=== PATIENT | female | born 1960 | race Hispanic/Latino ===

== ENCOUNTER → 2018-01-14 | Outpatient (CLI) | payer MEDICARE ==
[~2018-01-14] MED LIST: IOPAMIDOL 370 MG/ML 200 ML INFUS..BTL INJ ONE; SODIUM CHLORIDE 0.9% 50ML 50 ML ONE
[2018-01-14 10:05] LABS: ALANINE AMINOTRANSFERASE 31 IU/L (0-55); ALBUMIN/GLOBULIN RATIO 1.3 (0.8-2.0); ALKALINE PHOSPHATASE 96 IU/L (40-150); ANION GAP 17.1 mmol/L (8-16); BLOOD UREA NITROGEN 13 mg/dL (7-26); BUN/CREATININE RATIO 21 (6-25); CALCIUM 9.7 mg/dL (8.4-10.2); CARBON DIOXIDE 24 mmol/L (22-29); CHLORIDE 106 mmol/L (98-107); CREATININE, SERUM 0.62 mg/dL (0.57-1.11); EST GLOMERULAR FILTRATION RATE > 60 ML/MIN (60-); GLUCOSE 139 mg/dL (74-118); POTASSIUM 4.1 mmol/L (3.5-5.1); SODIUM 143 mmol/L (136-145)
--- NOTE | 2018-01-14 11:58 | Diagnostic Imaging Report ---
PROCEDURE:CT ABDOMEN WITH CONTRAST COMPARISON:None. INDICATIONS:ANTRAL TUMOR TECHNIQUE:5 mm images of the abdomen were performed after the intravenous administration of 100 cc of nonionic contrast. A general abdominal protocol was utilized. DLP: 471.06 mGY-cm FINDINGS: LUNG BASES:Clear. Visualized portion of the mediastinum is normal. LIVER:Diffusely decreased in attenuation consistent with steatosis. The right lobe measures 20 cm in length. There is no evidence of mass. BILIARY:The gallbladder is present and normal in appearance. No biliary ductal dilatation. PANCREAS:Normal attenuation without mass or ductal dilatation. SPLEEN:Normal size and attenuation without mass. KIDNEYS:[place] kidneys are atrophic without mass or hydronephrosis. A punctate calcification is in the lower pole of the left kidney. A renal transplant in the right iliac fossa is incompletely imaged. Visualized portions are normal in appearance. No surrounding fluid collection or hydronephrosis. ADRENALS:No mass. AORTA/VASCULAR:Normal in diameter with a few atherosclerotic calcifications. There is normal branching of the celiac artery. SMA is widely patent. LYMPH NODES: No enlarged lymph nodes in the gastrohepatic ligament. No enlarged periportal or periaortic lymph nodes. BOWEL/MESENTERY:Enhancing mass in the gastric antrum measures 3.3 x 3.1 x 2.1 cm (AP, transverse, craniocaudal). This mass is intraluminal. There is no fat inflammation or lymphadenopathy surrounding the stomach. There is no evidence of gastric obstruction. Small bowel is normal in diameter wall thickness. A low attenuating lesion in the second/third portion of the duodenum measures 7 mm and is suggestive of a lipoma. Visualized large bowel is normal in diameter with normal wall thickness. ABDOMINAL WALL:Normal. BONES:No focal osseous lesions. CONCLUSION: 1. Mass in the gastric antrum does not cause gastric outlet obstruction. There is no invasion through the gastric wall or surrounding lymphadenopathy. 2. No lymphadenopathy in the abdomen to suggest metastasis. No solid organ metastasis. 3. Hepatic steatosis and hepatomegaly. 4. Visualized portion of a right renal transplant appears normal. Dictated by: Emerson Rodriguez M.D. on 01/14/2018 at 11:58 Electronically approved by: Emerson Rodriguez M.D. on 01/14/2018 at 11:58
== END ==
LOC: CT 09:04
PROVIDERS: ATTEND Surgery
DX: R19.09 Other intra-abdominal and pelvic swelling, mass and lump (principal); K76.0 Fatty (change of) liver, not elsewhere classified; Z94.0 Kidney transplant status
CPT/HCPCS: 36415; 74160; 80053; 82378; Q9967

== ENCOUNTER 2018-04-08 06:38 | Inpatient (IN) | payer MEDICARE ==
[2018-04-06 09:33] LABS: BASOPHILS # (AUTO) 0.1 (0.0-0.1); BASOPHILS % 0.5 % (0.0-1.0); EOSINOPHILS # (AUTO) 0.2 (0.0-0.4); EOSINOPHILS % 2.3 % (0.0-6.0); HEMATOCRIT 33.8 % (34.2-44.1); HEMOGLOBIN 10.3 g/dL (12.0-16.0); LYMPHOCYTES # (AUTO) 1.8 (1.0-3.2); MEAN CORPUSCULAR HEMOGLOBIN 24.1 pg (28-32); MEAN CORPUSCULAR HGB CONC 30.5 g/dL (31-35); MEAN CORPUSCULAR VOLUME 79.2 fL (81-99); MONOCYTES # (AUTO) 0.8 (0.2-0.8); MONOCYTES % 8.2 % (4.4-11.3); NEUTROPHILS # (AUTO) 6.5 (2.1-6.9); NEUTROPHILS % 69.6 % (38.7-80.0); PLATELET COUNT 353 x10e3/uL (140-360); RED BLOOD COUNT 4.27 x10e6/uL (3.6-5.1); RED CELL DISTRIBUTION WIDTH 16.3 % (11.7-14.4)
--- NOTE | 2018-04-06 09:36 | Diagnostic Imaging Report ---
PROCEDURE:CHEST 2 VIEWS TECHNIQUE:PA and lateral chest INDICATION:Stomach cancer. Preoperative chest x-ray. COMPARISON:None. FINDINGS: The lungs are clear and symmetrically inflated. No pleural effusions. Normal heart size. Prominent left hilum. Intact skeleton. CONCLUSION: 1. No acute cardiopulmonary abnormality. 2. Prominent left hilum, likely secondary to vasculature. Given underlying malignancy CT chest with contrast is recommended to exclude lymphadenopathy. Dictated by: Sudhir Cordoba M.D. on 04/06/2018 at 9:39 Electronically approved by: Sudhir Cordoba M.D. on 04/06/2018 at 9:39
[2018-04-06 09:54] LABS: ANION GAP 14.2 mmol/L (8-16); BLOOD UREA NITROGEN 16 mg/dL (7-26); BUN/CREATININE RATIO 24 (6-25); CALCIUM 10.1 mg/dL (8.4-10.2); CARBON DIOXIDE 29 mmol/L (22-29); CHLORIDE 105 mmol/L (98-107); CREATININE, SERUM 0.68 mg/dL (0.57-1.11); EST GLOMERULAR FILTRATION RATE > 60 ML/MIN (60-); GLUCOSE 150 mg/dL (74-118); POTASSIUM 4.2 mmol/L (3.5-5.1); SODIUM 144 mmol/L (136-145)
[~2018-04-08] VITALS: Ht 157.5 cm; Wt 88.6 kg
[2018-04-08] VITALS (21 sets, daily range): BP systolic 114–134; BP diastolic 70–80
[~2018-04-08 06:38] MED LIST changes: +AMLODIPINE BESY10 MG PO; +ATORVASTATIN CA20 MG PO; +HYDROCHLOROTHIA25 MG PO; -IOPAMIDOL 370 MG/ML 200 ML INFUS..BTL INJ ONE; +JANUVIA100 MG PO; +LORATADINE10 MG PO; +METFORMIN HCL500 M2 PO; +MYCOPHENOLATE250 MG PO; +NEORAL25 MG PO; +NEXIUM40 MG PO; +PREDNISONE5 MG PO; -SODIUM CHLORIDE 0.9% 50ML 50 ML ONE
[2018-04-08] MEDS: SODIUM CHLORIDE 0.9% 1000ML 1,000 ML IV SCH ×2 (11:51→21:34)
[2018-04-08] MEDS ORDERED: ONDANSETRON HCL INJ 2 MG/ML VIAL IV PRN (12:00)
[2018-04-08] MEDS: INSULIN REGULAR, HUMAN 100 UNIT/1 ML 3ML VIAL SQ SCH ×3 (12:00→18:00)
[2018-04-08] MEDS ORDERED: NALOXONE HCL INJ 0.4 MG/ML AMP IV PRN (12:00)
[2018-04-08] MEDS: SODIUM CHLORIDE 0.9% 250ML IRRIG IR SCH ×4 (12:00→23:52)
[2018-04-08] MEDS ORDERED: HYDROMORPHONE 0.2MG/ML-SOD CHL 30ML PCA SYRINGE IV ONE (12:17)
--- NOTE | 2018-04-08 12:20 | Diagnostic Imaging Report ---
PROCEDURE: A single AP view of the chest. COMPARISON: Chest radiograph 04/06/2018 INDICATIONS: POST OPERATION, CENTRAL LINE PLACEMENT FINDINGS: Lines/tubes: Right internal jugular central venous catheter with tip overlying the expected upper SVC. No NG/OG tube tip courses below the diaphragm with tip extending inferiorly, out of the field of view. Lungs: The lungs are poorly inflated with vascular crowding and bibasilar atelectasis. There is no evidence of pneumonia or pulmonary edema. Pleura: There is no pleural effusion or pneumothorax. Heart and mediastinum: The heart and the mediastinum are unremarkable. Bones: No acute bony abnormality. Upper abdomen: Skin stevan project over the midline abdomen. IMPRESSION: 1. Lines and Tubes: * Right internal jugular central venous catheter with tip overlying the expected upper SVC. * NG/OG tube visualized over the stomach, extending out of the field of view. 2. Low lung volumes with bibasilar atelectasis and vascular crowding. Dictated by: Galen Mirza M.D. on 04/08/2018 at 12:23 Electronically approved by: Galen Mirza M.D. on 04/08/2018 at 12:23
[2018-04-08] MEDS: HYDROMORPHONE 0.2MG/ML-SOD CHL 30ML PCA SYRINGE IV PRN (12:21)
--- NOTE | 2018-04-08 13:38 | Operative Report ---
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 OPERATION PERFORMED 1. Exploratory laparotomy. 2. Bilateral truncal vagotomies. 3. Antrectomy with retrocolic Deloris-en-Y. 4. Billroth II reconstruction. ASSISTANTS: Dr. Hemanth Funk and NOA Fong. ANESTHESIA: General. COMPLICATIONS: None. ESTIMATED BLOOD LOSS: 100 mL. DESCRIPTION OF PROCEDURE: With the patient lying in bed in the supine position, under good general endotracheal anesthesia, the abdomen was prepped with Betadine solution and draped in the usual manner. An upper midline incision was made. It was carried down through the subcutaneous tissue and through the midline fascia. The peritoneum was opened, and the abdomen was entered. Upon entering the abdominal cavity, exploration revealed the patient to have some fatty infiltration of the liver. There was a palpable right-sided pelvic kidney from her previous transplant. Examination of the stomach revealed a palpable mass in the antrum. There was no sign of any adenopathy there. There was no sign of any invasion of the serosa. We decided to go ahead and proceed with the antrectomy as planned. The vagotomy was done first. The esophagus was then encircled and retracted. The anterior vagus nerve was then dissected, and a truncal anterior vagotomy was performed. The specimen was sent for pathological examination. We made sure that there were no other anterior branches. After this was done, the posterior branch was then identified and similarly divided with the segment being also sent for pathological examination. Hemostasis was ascertained. After this was done, the lesser sac was then entered at the level of the mid stomach, and the lesser omentum was divided with the Enseal device to clear the distal stomach without any difficulty. Similarly, the lesser curvature omentum was divided all the way down to beyond the pylorus. After this was done, the stomach was then divided at the level of the mid stomach with an application of the TA-90 stapler, and the stomach was divided. The proximal stump was then oversewn with interrupted sutures of 2-0 silk. The posterior antrum was then slowly and carefully dissected all the way down to the duodenum at the level of the 1st portion, and the duodenum was then divided with an application of the TA-60 stapler, and the specimen was sent for pathological examination. There was no sign circumferentially of any invasion of tumor through the serosal surfaces. The duodenal stump was further oversewn with interrupted sutures of 3-0 silk. The ligament of Treitz was then identified; and distal to the ligament of Treitz, the jejunum was divided with an application of the AGUILAR-75 stapler. A retrocolic opening was then made in the mesentery, and the distal limb of the jejunum was brought up into the upper abdomen. The gastrojejunal anastomosis was then performed with another application of the AGUILAR-75 stapler. The remaining opening was closed with a TA-60 stapler. The anastomosis was reinforced with 2-0 silk sutures. The jejunojejunostomy was then performed 50 cm distal to the gastrojejunostomy with another application of a AGUILAR-75 stapler. The remaining opening was closed with a TA-60 stapler, and the anastomosis was similarly reinforced with 3-0 silk sutures. The mesenteric rent was then closed with interrupted sutures of 3-0 silk, anchoring the jejunal limb, and the mesenteric hole of the jejunal limb was approximated with a running suture of 2-0 Vicryl. Once this was done, the whole abdomen was then thoroughly irrigated. Perfect hemostasis was ascertained. The NG tube was placed in the proper position, and the abdomen was then closed in layers. The peritoneum was closed with a running suture of #1 Vicryl. The midline fascia was closed with a running suture of #1 PDS, and the skin was closed with clips. A dressing was applied. The sponge, lap and needle count was correct. The patient tolerated the procedure well and returned to the recovery room in stable condition. Job#: [id number]
[2018-04-08] MEDS: HYDROCORTISONE SOD SUCCINATE 100 MG VIAL IV SCH ×2 (14:00→21:44)
[2018-04-08] MEDS ORDERED: CEFAZOLIN SOD 1 GM/D5W 50ML 50 ML IV SCH (14:00)
[2018-04-08] MEDS ORDERED: CEFAZOLIN SOD 1 GM VIAL ONE (15:59)
[2018-04-08] MEDS ORDERED: GLYCOPYRROLATE INJ 1MG/ 5 ML SYR ONE (16:18)
[2018-04-08] MEDS ORDERED: NEOSTIGMINE 5 MG/5ML SYR ONE (16:18)
[2018-04-08] MEDS ORDERED: HYDROCORTISONE SOD SUCCINATE 100 MG VIAL ONE (16:18)
[2018-04-08] MEDS ORDERED: PROPOFOL IV EMULSION 10 MG/ML 20 ML VIAL ONE (16:18)
[2018-04-08] MEDS ORDERED: ROCURONIUM BROMIDE 10 MG/ML 5ML VIAL ONE (16:18)
[2018-04-08] MEDS ORDERED: SEVOFLURANE INHAL SOLN 250 ML PEN BTL ONE (16:18)
[2018-04-08] MEDS ORDERED: LIDOCAINE HCL 2% LOCAL INJ 5 ML SDV VIAL INJ ONE (16:18)
[2018-04-08] MEDS ORDERED: ONDANSETRON HCL INJ 2 MG/ML VIAL ONE (16:18)
[2018-04-08] MEDS ORDERED: FENTANYL CITRATE/PF 100MCG/2 ML INJ ONE (18:00)
[2018-04-08] MEDS ORDERED: MIDAZOLAM HCL 2 MG/2 ML VIAL ONE (18:00)
[2018-04-08] MEDS: CEFAZOLIN SOD 1 GM VIAL IV SCH (21:44)
[2018-04-08] MEDS: ACETAMINOPHEN 1000 MG/100 ML IV PRN (23:04)
[2018-04-09] VITALS (81 sets, daily range): BP systolic 110–144; BP diastolic 64–87
[2018-04-09] MEDS: SODIUM CHLORIDE 0.9% 1000ML 1,000 ML IV SCH ×3 (02:52→19:28)
[2018-04-09] MEDS: SODIUM CHLORIDE 0.9% 250ML IRRIG IR SCH ×5 (04:25→19:28)
[2018-04-09 05:22] LABS: BASOPHILS % 0.2 % (0.0-1.0); HEMOGLOBIN 8.8 g/dL (12.0-16.0); LYMPHOCYTES # (AUTO) 0.9 (1.0-3.2); LYMPHOCYTES % 6.3 % (18.0-39.1); MEAN CORPUSCULAR HEMOGLOBIN 24.1 pg (28-32); MEAN CORPUSCULAR HGB CONC 30.3 g/dL (31-35); MEAN CORPUSCULAR VOLUME 79.5 fL (81-99); MONOCYTES # (AUTO) 1.2 (0.2-0.8); MONOCYTES % 8.4 % (4.4-11.3); NEUTROPHILS # (AUTO) 12.1 (2.1-6.9); NEUTROPHILS % 84.6 % (38.7-80.0); PLATELET COUNT 300 x10e3/uL (140-360); RED BLOOD COUNT 3.65 x10e6/uL (3.6-5.1); RED CELL DISTRIBUTION WIDTH 17.1 % (11.7-14.4)
[2018-04-09] MEDS: INSULIN REGULAR, HUMAN 100 UNIT/1 ML 3ML VIAL SQ SCH ×4 (06:00→18:00)
[2018-04-09 06:01] LABS: ALANINE AMINOTRANSFERASE 146 IU/L (0-55); ALBUMIN 3.3 g/dL (3.5-5.0); ALBUMIN/GLOBULIN RATIO 1.1 (0.8-2.0); ALKALINE PHOSPHATASE 80 IU/L (40-150); ANION GAP 14.2 mmol/L (8-16); BLOOD UREA NITROGEN 14 mg/dL (7-26); BUN/CREATININE RATIO 19 (6-25); CALCIUM 8.7 mg/dL (8.4-10.2); CARBON DIOXIDE 24 mmol/L (22-29); CHLORIDE 111 mmol/L (98-107); CREATININE, SERUM 0.73 mg/dL (0.57-1.11); EST GLOMERULAR FILTRATION RATE > 60 ML/MIN (60-); GLUCOSE 170 mg/dL (74-118); POTASSIUM 4.2 mmol/L (3.5-5.1); SODIUM 145 mmol/L (136-145)
[2018-04-09] MEDS: HYDROCORTISONE SOD SUCCINATE 100 MG VIAL IV SCH ×3 (06:04→21:45)
[2018-04-09] MEDS: CEFAZOLIN SOD 1 GM VIAL IV SCH (06:04)
[2018-04-09] MEDS: ACETAMINOPHEN 1000 MG/100 ML IV PRN ×3 (06:30→21:40)
[2018-04-09] MEDS: CEFTRIAXONE SOD 1 GM VIAL IV SCH (19:28)
[2018-04-09] MEDS ORDERED: CYCLOSPORINE 250 MG/5 ML AMP IV SCH (21:00)
[2018-04-09] MEDS: SODIUM CHLORIDE 0.9% IV SCH (22:32)
[2018-04-09] MEDS: CYCLOSPORINE IV SCH (22:32)
--- NOTE | 2018-04-09 22:50 | Consultation ---
DATE OF CONSULTATION: April 09, 2018 HISTORY OF PRESENT ILLNESS: Ms. Laura Mccarty is a 58-year-old female. She is 8 years out into kidney transplant, currently receives prednisone 5 mg daily, cyclosporin 75 mg twice a day, Neoral that is, and mycophenolic acid 180 mg twice a day. She underwent partial gastrectomy. Please see details with Dr. Funk's note. Currently, awake, alert, lying supine. No apparent distress. Has an nasogastric tube completely n.p.o. receiving IV fluids. Denies shortness of breath, abdominal pain. 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 CURRENT MEDICATIONS: Please see chart. She is on Zofran p.r.n., Dilaudid p.r.n., cefazolin, normal saline 125 mL an hour, and cyclosporin 25 mg IV, which I initiated this morning. ALLERGIES: NO APPARENT DRUG ALLERGIES. PAST HISTORY: History of gastric cancer, had enterectomy, and retrocolic Deloris-en-Y, Billroth II reconstruction, and bilateral truncal vagotomies. Has underlying history of kidney transplant as mentioned above, history of diabetes. CURRENT LABS: Sodium 145, potassium 4.2, chloride 111, bicarbonate 24, creatinine 0.7. LFTs elevated 134 and 145 respectively. White count is 14.3, hemoglobin 8.8. SOCIAL HISTORY: Does not smoke or drink. FAMILY HISTORY: Significant for hypertension. EXAM GENERAL: Awake, alert, laying supine. No apparent distress. VITALS: Blood pressure 129/75. Pulse rate 74. Afebrile. Respiratory 17 with oxygen saturation 94%. HEAD AND NECK: Cornea clear. Mucosa dry. NG tube in. LUNGS: Decreased gas exchange, but relatively clear. HEART: S1, S2 audible. Distant heart sounds. ABDOMEN: Examination deferred. LOWER EXTREMITY: No edema. IMPRESSION: Cadaveric renal transplant, on immunosuppression. PLAN: To start TPN in the meantime. Will adjust the dose of cyclosporin to IV at 25 mg IV q.12 and will start Solu-Cortef 50 mg IV q.8. Will give mycophenolic acid as soon as surgery allows as to administer medication through the NG tube. Volume status appears stable. Please see orders. Job#: [id number] CQ
[2018-04-09] MEDS: DEXTROSE 5%/0.9% SOD CHL 1,000 ML IV SCH (23:15)
[2018-04-10] VITALS (83 sets, daily range): BP systolic 122–158; BP diastolic 69–88
[2018-04-10] MEDS: SODIUM CHLORIDE 0.9% 250ML IRRIG IR SCH ×6 (00:05→21:13)
[2018-04-10 05:27] LABS: BASOPHILS % 0.3 % (0.0-1.0); HEMATOCRIT 27.2 % (34.2-44.1); MEAN CORPUSCULAR HGB CONC 29.4 g/dL (31-35); MEAN CORPUSCULAR VOLUME 81.4 fL (81-99); MONOCYTES # (AUTO) 0.9 (0.2-0.8); MONOCYTES % 6.8 % (4.4-11.3); NEUTROPHILS # (AUTO) 11.8 (2.1-6.9); NEUTROPHILS % 85.3 % (38.7-80.0); PLATELET COUNT 252 x10e3/uL (140-360); RED BLOOD COUNT 3.34 x10e6/uL (3.6-5.1); RED CELL DISTRIBUTION WIDTH 17.2 % (11.7-14.4)
[2018-04-10 05:50] LABS: ALANINE AMINOTRANSFERASE 84 IU/L (0-55); ALBUMIN 2.8 g/dL (3.5-5.0); ALBUMIN/GLOBULIN RATIO 0.8 (0.8-2.0); ALKALINE PHOSPHATASE 76 IU/L (40-150); ANION GAP 11.5 mmol/L (8-16); BLOOD UREA NITROGEN 7 mg/dL (7-26); BUN/CREATININE RATIO 11 (6-25); CALCIUM 8.9 mg/dL (8.4-10.2); CARBON DIOXIDE 24 mmol/L (22-29); CHLORIDE 112 mmol/L (98-107); CREATININE, SERUM 0.62 mg/dL (0.57-1.11); EST GLOMERULAR FILTRATION RATE > 60 ML/MIN (60-); GLUCOSE 180 mg/dL (74-118); POTASSIUM 3.5 mmol/L (3.5-5.1); SODIUM 144 mmol/L (136-145)
[2018-04-10] MEDS: INSULIN REGULAR, HUMAN 100 UNIT/1 ML 3ML VIAL SQ SCH ×4 (06:00→17:55)
[2018-04-10 06:05] LABS: MAGNESIUM 1.7 MG/DL (1.3-2.1); PHOSPHORUS 1.7 MG/DL (2.3-4.7)
[2018-04-10] MEDS: HYDROCORTISONE SOD SUCCINATE 100 MG VIAL IV SCH ×3 (06:12→22:40)
[2018-04-10] MEDS: DEXTROSE 5%/0.9% SOD CHL 1,000 ML IV SCH ×2 (06:30→14:48)
[2018-04-10] MEDS: ACETAMINOPHEN 1000 MG/100 ML IV PRN ×3 (06:39→21:17)
[2018-04-10] MEDS ORDERED: POTASSIUM PHOSPHATE IV SCH (07:30)
[2018-04-10] MEDS ORDERED: MAGNESIUM SULFATE 2GM/50ML 50 ML IV ONE (07:30)
[2018-04-10] MEDS ORDERED: SODIUM CHLORIDE IV SCH (07:30)
[2018-04-10] MEDS: CYCLOSPORINE IV SCH ×2 (11:01→21:15)
[2018-04-10] MEDS: SODIUM CHLORIDE 0.9% IV SCH ×2 (11:01→21:15)
[2018-04-10] MEDS: HYDROMORPHONE 0.2MG/ML-SOD CHL 30ML PCA SYRINGE IV PRN (18:00)
[2018-04-10] MEDS: CEFTRIAXONE SOD 1 GM VIAL IV SCH (18:31)
[2018-04-10] MEDS: CENTRAL TPN FORMULA 1 BAG IV SCH (20:45)
[2018-04-11] VITALS (35 sets, daily range): BP systolic 130–168; BP diastolic 67–89
[2018-04-11] MEDS: INSULIN REGULAR, HUMAN 100 UNIT/1 ML 3ML VIAL SQ SCH ×4 (00:42→18:38)
[2018-04-11] MEDS: SODIUM CHLORIDE 0.9% 250ML IRRIG IR SCH ×6 (00:46→20:00)
[2018-04-11] MEDS: HYDROCORTISONE SOD SUCCINATE 100 MG VIAL IV SCH ×3 (05:18→22:00)
[2018-04-11] MEDS: DEXTROSE 5%/0.9% SOD CHL 1,000 ML IV SCH (05:18)
[2018-04-11 06:22] LABS: BASOPHILS % 0.3 % (0.0-1.0); HEMATOCRIT 26.2 % (34.2-44.1); HEMOGLOBIN 7.8 g/dL (12.0-16.0); LYMPHOCYTES # (AUTO) 0.8 (1.0-3.2); LYMPHOCYTES % 6.3 % (18.0-39.1); MEAN CORPUSCULAR HGB CONC 29.8 g/dL (31-35); MEAN CORPUSCULAR VOLUME 80.6 fL (81-99); MONOCYTES # (AUTO) 0.6 (0.2-0.8); MONOCYTES % 5.3 % (4.4-11.3); NEUTROPHILS # (AUTO) 10.4 (2.1-6.9); NEUTROPHILS % 87.2 % (38.7-80.0); PLATELET COUNT 260 x10e3/uL (140-360); RED BLOOD COUNT 3.25 x10e6/uL (3.6-5.1); RED CELL DISTRIBUTION WIDTH 17.2 % (11.7-14.4)
[2018-04-11 06:33] LABS: ALANINE AMINOTRANSFERASE 61 IU/L (0-55); ALBUMIN 2.7 g/dL (3.5-5.0); ALBUMIN/GLOBULIN RATIO 0.7 (0.8-2.0); ALKALINE PHOSPHATASE 85 IU/L (40-150); ANION GAP 11.7 mmol/L (8-16); BLOOD UREA NITROGEN 8 mg/dL (7-26); BUN/CREATININE RATIO 12 (6-25); CALCIUM 9.3 mg/dL (8.4-10.2); CARBON DIOXIDE 25 mmol/L (22-29); CHLORIDE 111 mmol/L (98-107); CREATININE, SERUM 0.69 mg/dL (0.57-1.11); EST GLOMERULAR FILTRATION RATE > 60 ML/MIN (60-); GLUCOSE 399 mg/dL (74-118); MAGNESIUM 2.2 MG/DL (1.3-2.1); PHOSPHORUS 1.9 MG/DL (2.3-4.7); POTASSIUM 3.7 mmol/L (3.5-5.1); SODIUM 144 mmol/L (136-145)
[2018-04-11] MEDS: SODIUM CHLORIDE 0.9% IV SCH ×2 (09:26→22:00)
[2018-04-11] MEDS: CYCLOSPORINE IV SCH ×2 (09:26→22:00)
[2018-04-11] MEDS: HYDROMORPHONE 0.2MG/ML-SOD CHL 30ML PCA SYRINGE IV PRN (11:40)
[2018-04-11] MEDS ORDERED: MYCOPHENOLIC ACID PO SCH (12:00)
[2018-04-11] MEDS: CEFTRIAXONE SOD 1 GM VIAL IV SCH (18:08)
[2018-04-11] MEDS: CENTRAL TPN FORMULA 1 BAG IV SCH (20:20)
[2018-04-11] MEDS ORDERED: HYDROMORPHONE 0.2MG/ML-SOD CHL 30ML PCA SYRINGE IV PRN (21:00)
[2018-04-11] MEDS: BISACODYL 10 MG SUPP PR SCH (22:00)
[2018-04-11] MEDS ORDERED: MYCOPHENOLIC ACID PO ONE (22:45)
[2018-04-12] VITALS: BP 176/84
[2018-04-12] MEDS: INSULIN REGULAR, HUMAN 100 UNIT/1 ML 3ML VIAL SQ SCH ×5 (00:25→23:51)
[2018-04-12 04:00] VITALS: BP 179/84
[2018-04-12] MEDS: DEXTROSE 5%/0.9% SOD CHL 1,000 ML IV SCH (05:47)
[2018-04-12 07:49] LABS: ANION GAP 13.1 mmol/L (8-16); BLOOD UREA NITROGEN 9 mg/dL (7-26); BUN/CREATININE RATIO 15 (6-25); CALCIUM 9.5 mg/dL (8.4-10.2); CARBON DIOXIDE 25 mmol/L (22-29); CHLORIDE 113 mmol/L (98-107); CREATININE, SERUM 0.61 mg/dL (0.57-1.11); EST GLOMERULAR FILTRATION RATE > 60 ML/MIN (60-); GLUCOSE 269 mg/dL (74-118); MAGNESIUM 1.7 MG/DL (1.3-2.1); PHOSPHORUS 2.3 MG/DL (2.3-4.7); POTASSIUM 3.1 mmol/L (3.5-5.1); SODIUM 148 mmol/L (136-145)
[2018-04-12] MEDS: AMLODIPINE BESYLATE 10 MG TAB PO SCH (08:42)
[2018-04-12] MEDS: MYCOPHENOLIC ACID PO SCH ×2 (08:42→20:16)
[2018-04-12] MEDS: PREDNISONE 5 MG TAB PO SCH (08:42)
[2018-04-12] MEDS: BISACODYL 10 MG SUPP PR SCH (08:43)
[2018-04-12] MEDS ORDERED: MYCOPHENOLATE MOFETIL 250 MG CAP PO SCH (09:00)
[2018-04-12] MEDS: CYCLOSPORINE 25 MG CAP PO SCH ×2 (09:20→20:16)
[2018-04-12 10:18] VITALS: BP 179/84
[2018-04-12] MEDS ORDERED: POTASSIUM CHLORIDE 20 MEQ TAB CR PO ONE (16:00)
[2018-04-12 16:40] VITALS: BP 170/75
[2018-04-12] MEDS: CEFTRIAXONE SOD 1 GM VIAL IV SCH (18:15)
[2018-04-12 20:00] VITALS: BP 148/67
[2018-04-12] MEDS ORDERED: CENTRAL TPN FORMULA 1 BAG IV SCH (20:00)
[2018-04-12 20:53] VITALS: BP 148/67
[2018-04-13] VITALS (7 sets, daily range): BP systolic 128–159; BP diastolic 60–75
[2018-04-13] MEDS: INSULIN REGULAR, HUMAN 100 UNIT/1 ML 3ML VIAL SQ SCH ×4 (06:00→21:10)
[2018-04-13] MEDS: DEXTROSE 5%/0.9% SOD CHL 1,000 ML IV SCH (06:09)
[2018-04-13 07:49] LABS: BASOPHILS % 0.4 % (0.0-1.0); EOSINOPHILS # (AUTO) 0.3 (0.0-0.4); HEMATOCRIT 26.5 % (34.2-44.1); HEMOGLOBIN 8.1 g/dL (12.0-16.0); LYMPHOCYTES # (AUTO) 0.8 (1.0-3.2); MEAN CORPUSCULAR HEMOGLOBIN 23.8 pg (28-32); MEAN CORPUSCULAR HGB CONC 30.6 g/dL (31-35); MEAN CORPUSCULAR VOLUME 77.7 fL (81-99); MONOCYTES # (AUTO) 0.9 (0.2-0.8); MONOCYTES % 11.1 % (4.4-11.3); NEUTROPHILS # (AUTO) 6.2 (2.1-6.9); NEUTROPHILS % 74.5 % (38.7-80.0); PLATELET COUNT 285 x10e3/uL (140-360); RED BLOOD COUNT 3.41 x10e6/uL (3.6-5.1); RED CELL DISTRIBUTION WIDTH 17.6 % (11.7-14.4)
[2018-04-13 08:12] LABS: ALANINE AMINOTRANSFERASE 32 IU/L (0-55); ALBUMIN 2.7 g/dL (3.5-5.0); ALBUMIN/GLOBULIN RATIO 0.7 (0.8-2.0); ALKALINE PHOSPHATASE 84 IU/L (40-150); ANION GAP 12.4 mmol/L (8-16); BLOOD UREA NITROGEN 11 mg/dL (7-26); BUN/CREATININE RATIO 18 (6-25); CALCIUM 9.2 mg/dL (8.4-10.2); CARBON DIOXIDE 22 mmol/L (22-29); CHLORIDE 110 mmol/L (98-107); CREATININE, SERUM 0.61 mg/dL (0.57-1.11); EST GLOMERULAR FILTRATION RATE > 60 ML/MIN (60-); GLUCOSE 243 mg/dL (74-118); POTASSIUM 3.4 mmol/L (3.5-5.1); SODIUM 141 mmol/L (136-145)
[2018-04-13] MEDS: CYCLOSPORINE 25 MG CAP PO SCH ×2 (08:37→21:09)
[2018-04-13] MEDS: MYCOPHENOLIC ACID PO SCH ×2 (08:37→21:07)
[2018-04-13] MEDS: AMLODIPINE BESYLATE 10 MG TAB PO SCH (08:38)
[2018-04-13] MEDS: PREDNISONE 5 MG TAB PO SCH (08:38)
[2018-04-13] MEDS ORDERED: POTASSIUM CHLORIDE 20MEQ/100ML 200 ML IV ONE (12:45)
[2018-04-13 13:01] LABS: % IRON SATURATION 6 % (15-50); IRON 21 ug/dL (50-170); TOTAL IRON BINDING CAPACITY 329 ug/dL (261-478); TRANSFERRIN 235 mg/dL (180-382)
[2018-04-13] MEDS: CEFTRIAXONE SOD 1 GM VIAL IV SCH (17:21)
[2018-04-13] MEDS ORDERED: HYDROMORPHONE 1MG/1ML INJ IV PRN (19:00)
[2018-04-13] MEDS ORDERED: HYDROCODONE/APAP 7.5MG-325MG 1 EA TAB PO PRN (19:00)
[2018-04-13] MEDS ORDERED: MAGNESIUM HYDROXIDE 30 ML UDC PO ONE (19:45)
[2018-04-14] VITALS (7 sets, daily range): BP systolic 136–148; BP diastolic 64–75
[2018-04-14] MEDS: DEXTROSE 5%/0.9% SOD CHL 1,000 ML IV SCH (05:47)
[2018-04-14 06:55] LABS: ALANINE AMINOTRANSFERASE 42 IU/L (0-55); ALBUMIN/GLOBULIN RATIO 0.7 (0.8-2.0); ALKALINE PHOSPHATASE 163 IU/L (40-150); ANION GAP 15.2 mmol/L (8-16); BLOOD UREA NITROGEN 10 mg/dL (7-26); BUN/CREATININE RATIO 17 (6-25); CALCIUM 9.9 mg/dL (8.4-10.2); CARBON DIOXIDE 24 mmol/L (22-29); CHLORIDE 104 mmol/L (98-107); EST GLOMERULAR FILTRATION RATE > 60 ML/MIN (60-); GLUCOSE 139 mg/dL (74-118); POTASSIUM 4.2 mmol/L (3.5-5.1); SODIUM 139 mmol/L (136-145)
[2018-04-14] MEDS: INSULIN REGULAR, HUMAN 100 UNIT/1 ML 3ML VIAL SQ SCH ×4 (07:30→21:04)
[2018-04-14] MEDS: MYCOPHENOLIC ACID PO SCH ×2 (08:28→21:00)
[2018-04-14] MEDS: AMLODIPINE BESYLATE 10 MG TAB PO SCH (08:28)
[2018-04-14] MEDS: CYCLOSPORINE 25 MG CAP PO SCH ×2 (08:28→21:00)
[2018-04-14] MEDS: PREDNISONE 5 MG TAB PO SCH (08:28)
[2018-04-14] MEDS: IRON SUCROSE 100 MG in SODIUM CHLORIDE 0.9% 100 ML 100 ML IV SCH (10:01)
[2018-04-15] VITALS: BP 144/67
[2018-04-15 04:00] VITALS: BP 137/65
[2018-04-15] MEDS: DEXTROSE 5%/0.9% SOD CHL 1,000 ML IV SCH (05:47)
[2018-04-15] MEDS: INSULIN REGULAR, HUMAN 100 UNIT/1 ML 3ML VIAL SQ SCH ×2 (07:30→11:30)
[2018-04-15] MEDS: MYCOPHENOLIC ACID PO SCH (09:00)
[2018-04-15] MEDS: CYCLOSPORINE 25 MG CAP PO SCH (09:30)
[2018-04-15] MEDS: AMLODIPINE BESYLATE 10 MG TAB PO SCH (09:30)
[2018-04-15] MEDS: PREDNISONE 5 MG TAB PO SCH (09:30)
[2018-04-15] MEDS: IRON SUCROSE 100 MG in SODIUM CHLORIDE 0.9% 100 ML 100 ML IV SCH (09:45)
[2018-04-15] MEDS ORDERED: NORCO 7.5-3251 EACH PO (11:20)
[2018-04-15 12:00] VITALS: BP 132/71
[2018-04-15] MEDS ORDERED: EPOETIN ALFA 10000 UNIT/ML VIAL SC ONE (13:30)
[2018-04-15 16:22] VITALS: BP 132/74
== END 2018-04-15 15:55 | disposition home or self-care (01) | DRG 327 ==
LOC: OR 06:38 → PACU V 11:58 → ICU 19:54 → MED/SURG 04-11 13:32
PROVIDERS: ADMIT Surgery; ATTEND Surgery
PROC: 008Q0ZZ Division of Vagus Nerve, Open Approach (ICD-10-PCS; 2018-04-08)
PROC: 0DT70ZZ Resection of Stomach, Pylorus, Open Approach (ICD-10-PCS; principal; 2018-04-08 07:30)
PROC: 0D160ZA Bypass Stomach to Jejunum, Open Approach (ICD-10-PCS; 2018-04-08 07:30)
PROC: 3E0336Z Introduction of Nutritional Substance into Peripheral Vein, Percutaneous Approach (ICD-10-PCS; 2018-04-09)
PROC: 3E0336Z Introduction of Nutritional Substance into Peripheral Vein, Percutaneous Approach (ICD-10-PCS; 2018-04-10)
DX: K31.89 Other diseases of stomach and duodenum (principal); Z94.0 Kidney transplant status; E11.22 Type 2 diabetes mellitus with diabetic chronic kidney disease; I12.9 Hypertensive chronic kidney disease with stage 1 through stage 4 chronic kidney disease, or unspecified chronic kidney disease; N18.9 Chronic kidney disease, unspecified; E78.5 Hyperlipidemia, unspecified; K76.0 Fatty (change of) liver, not elsewhere classified; E11.65 Type 2 diabetes mellitus with hyperglycemia; E83.39 Other disorders of phosphorus metabolism; Z68.35 Body mass index [BMI] 35.0-35.9, adult; D50.9 Iron deficiency anemia, unspecified
CPT/HCPCS: 36415; 71045; 71046; 80048; 80053; 82728; 82948; 83540; 83735; 84100; 84466; 85025; 86850; 86900; 88302; 88305; 88309; 88312; 93005; 96372; J0690; J0696; J1720; J1756; J2001; J2250; J2405; J3480; J7030; J7042; J7050; J7512; J7515; J7516; Q4081